=== PATIENT | female | born 1970 | race African-American/Black ===

== ENCOUNTER 2018-08-13 11:00 | Emergency (ER) | payer BC, OTHER ==
[~2018-08-13] VITALS: Ht 167.6 cm; Wt 74.8 kg
[2018-08-13] MEDS ORDERED: methylPREDNISolone SOD SUCC PF 125 MG/2 ML VIAL. IV ONE (11:15)
[2018-08-13] MEDS ORDERED: IV NORMAL SALINE 1000ML BAG 1,000 ML IV ONE (11:15)
--- NOTE | 2018-08-13 11:18 | PHYS DOC ---
Past Medical History Past Medical History: No Pertinent History Past Surgical History: Appendectomy, Other Additional Past Surgical Histo: FIBROIDS Alcohol Use: None Drug Use: None Adult General Chief Complaint Chief Complaint: HEADACHE HPI HPI Patient is a 48 year old female with no significant medical history who presents today to be evaluated for syncope and headache. Patient states yesterday she was working at [id number], she states she found herself on the floor. Patient states an ambulance was called, she declined to be brought to the emergency room to be evaluated. Patient states this morning she woke up with a 4 out of 10 frontal headache. Patient denies anything exacerbating or making the headache better. Denies any photophobia nausea or vomiting with the headache. Denies taking anything for her symptoms. Denies any chest pain or shortness of breath. Review of Systems Review of Systems Constitutional: Denies fever or chills [] Eyes: Denies change in visual acuity, redness, or eye pain [] HENT: Denies nasal congestion or sore throat [] Respiratory: Denies cough or shortness of breath [] Cardiovascular: No additional information not addressed in HPI [] GI: Denies abdominal pain, nausea, vomiting, bloody stools or diarrhea [] : Denies dysuria or hematuria [] Musculoskeletal: Denies back pain or joint pain [] Integument: Denies rash or skin lesions [] Neurologic: Reports headache, syncope, denies focal weakness or sensory changes [] All other systems were reviewed and found to be within normal limits, except as documented in this note. Current Medications Current Medications Current Medications Medications (Trade) Dose Ordered Sig/[facility] Start Time Stop Time Status Last Admin Dose Admin Methylprednisolone Sodium Succinate (SOLU-Medrol 125MG VIAL) 125 mg 1X ONCE 08/13/18 11:15 08/13/18 11:17 DC 08/13/18 11:57 125 MG Sodium Chloride 1,000 ml @ 1,000 mls/hr 1X ONCE 08/13/18 11:15 08/13/18 12:14 DC 08/13/18 11:53 1,000 MLS/HR Allergies Allergies Allergies Coded Allergies Type Severity Reaction Last Updated Verified quinine Allergy Intermediate 03/22/15 No Physical Exam Physical Exam Constitutional: Well developed, well nourished, no acute distress, non-toxic appearance. [] HENT: Normocephalic, atraumatic, bilateral external ears normal, oropharynx moist, no oral exudates, nose normal. [] Eyes: PERRLA, EOMI, conjunctiva normal, no discharge. [] Neck: Normal range of motion, no tenderness, supple, no stridor. [] Cardiovascular:Heart rate regular rhythm, no murmur [] Lungs & Thorax: Bilateral breath sounds clear to auscultation [] Abdomen: Bowel sounds normal, soft, no tenderness, no masses, no pulsatile masses. [] Skin: Warm, dry, no erythema, no rash. [] Back: No tenderness, no CVA tenderness. [] Extremities: No tenderness, no cyanosis, no clubbing, ROM intact, no edema. [] Neurologic: Alert and oriented X 3, normal motor function, normal sensory function, no focal deficits noted. Cranial nerves II through XII intact Psychologic: Affect normal, judgement normal, mood normal. [] Current Patient Data Vital Signs Vital Signs Date Time Temp Pulse Resp B/P (MAP) Pulse Ox O2 Delivery O2 Flow Rate FiO2 08/13/18 14:00 74 18 99 08/13/18 11:06 98.9 109/67 (81) Room Air 98.9 Lab Values Laboratory Tests Test 08/13/18 11:10 08/13/18 11:15 08/13/18 11:25 08/13/18 12:15 Urine Collection Type Unknown Urine Color Yellow Urine Clarity Clear Urine pH 6.0 Urine Specific [place] 1.025 Urine Protein Negative mg/dL (NEG-TRACE) Urine Glucose (UA) Negative mg/dL (NEG) Urine Ketones (Stick) Negative mg/dL (NEG) Urine Blood Moderate (NEG) Urine Nitrite Negative (NEG) Urine Bilirubin Negative (NEG) Urine Urobilinogen Dipstick 0.2 mg/dL (0.2 mg/dL) Urine Leukocyte Esterase Negative (NEG) Urine RBC 6-10 /HPF (0-2) Urine WBC Occ /HPF (0-4) Urine Squamous Epithelial Cells Mod /LPF Urine Bacteria 0 /HPF (0-FEW) Urine Mucus Mod /LPF Urine Opiates Screen Neg (NEG) Urine Methadone Screen Neg (NEG) Urine Barbiturates Neg (NEG) Urine Phencyclidine Screen Neg (NEG) Urine Amphetamine/Methamphetamine Neg (NEG) Urine Benzodiazepines Screen Neg (NEG) Urine Cocaine Screen Neg (NEG) Urine Cannabinoids Screen Neg (NEG) Urine Ethyl Alcohol Neg (NEG) POC Urine HCG, Qualitative Hcg negative (Negative) White Blood Count 3.1 x10^3/uL (4.0-11.0) L Red Blood Count 4.10 x10^6/uL (3.50-5.40) Hemoglobin 11.6 g/dL (12.0-15.5) L Hematocrit 34.5 % (36.0-47.0) L Mean Corpuscular Volume 84 fL (79-100) Mean Corpuscular Hemoglobin 28 pg (25-35) Mean Corpuscular Hemoglobin Concent 34 g/dL (31-37) Red Cell Distribution Width 15.2 % (11.5-14.5) H Platelet Count 227 x10^3/uL (140-400) Neutrophils (%) (Auto) 47 % (31-73) Lymphocytes (%) (Auto) 42 % (24-48) Monocytes (%) (Auto) 8 % (0-9) Eosinophils (%) (Auto) 2 % (0-3) Basophils (%) (Auto) 1 % (0-3) Neutrophils # (Auto) 1.5 x10^3uL (1.8-7.7) L Lymphocytes # (Auto) 1.3 x10^3/uL (1.0-4.8) Monocytes # (Auto) 0.3 x10^3/uL (0.0-1.1) Eosinophils # (Auto) 0.1 x10^3/uL (0.0-0.7) Basophils # (Auto) 0.0 x10^3/uL (0.0-0.2) Troponin I Quantitative < 0.017 ng/mL (0.000-0.055) WT-Tgi-V-Type Natriuretic Peptide 10 pg/mL (0-124) Thyroid Stimulating Hormone (TSH) 0.185 uIU/mL (0.358-3.74) L Sodium Level 144 mmol/L (136-145) Potassium Level 3.5 mmol/L (3.5-5.1) Chloride Level 107 mmol/L (98-107) Carbon Dioxide Level 30 mmol/L (21-32) Anion Gap 7 (6-14) Blood Urea Nitrogen 11 mg/dL (7-20) Creatinine 1.0 mg/dL (0.6-1.0) Estimated GFR (Cockcroft-Gault) 72.2 BUN/Creatinine Ratio 11 (6-20) Glucose Level 77 mg/dL (70-99) Calcium Level 8.6 mg/dL (8.5-10.1) Magnesium Level 1.8 mg/dL (1.8-2.4) Total Bilirubin 0.2 mg/dL (0.2-1.0) Aspartate Amino Transferase (AST) 12 U/L (15-37) L Alanine Aminotransferase (ALT) 17 U/L (14-59) Alkaline Phosphatase 49 U/L (46-116) Total Protein 7.4 g/dL (6.4-8.2) Albumin 3.1 g/dL (3.4-5.0) L Albumin/Globulin Ratio 0.7 (1.0-1.7) L Laboratory Tests 08/13/18 11:25 Laboratory Tests 08/13/18 12:15 EKG EKG 11:[address] Ram sinus rhythm heart rate 69 no STEMI Radiology/Procedures Radiology/Procedures []PROCEDURE: PORTABLE CHEST 1V EXAM: Chest, single view. HISTORY: Syncope. COMPARISON: None. FINDINGS: A frontal view of the chest is obtained. There is no infiltrate, pleural effusion or pneumothorax. The heart is normal in size. IMPRESSION: No acute pulmonary finding. Electronically signed by: Chante Vines MD (08/13/2018 11:44 AM) [facility] DICTATED and SIGNED BY: CHANTE VINES MD DATE: 08/13/18 1144 PROCEDURE: CT HEAD WO CONTRAST EXAM: Head CT without contrast. HISTORY: Syncope. Fall.. TECHNIQUE: Computed tomographic images of the head were obtained without contrast. *One or more of the following individualized dose reduction techniques were utilized for this examination: 1. Automated exposure control. 2. Adjustment of the mA and/or kV according to patient size. 3. Use of iterative reconstruction technique. COMPARISON: None. FINDINGS: There is no acute or subacute extra-axial or intraparenchymal hemorrhage. There is no mass effect or midline shift. There is no hydrocephalus. The yeh-white matter differential pattern is intact. The visualized portions of the orbits, paranasal sinuses and mastoid air cells are unremarkable. No suspicious calvarial lesion is seen. IMPRESSION: No acute intracranial findings. Electronically signed by: Chante Vines MD (08/13/2018 11:57 AM) [facility] DICTATED and SIGNED BY: CHANTE VINES MD DATE: 08/13/18 1152 Course & Med Decision Making Course & Med Decision Making Pertinent Labs and Imaging studies reviewed. (See chart for details) This is a 48-year-old female patient presenting to the ED today with a syncope episode that occurred yesterday at work. Also complaining of a headache that began this morning. Patient's EKG, labs including cardiac workup, chest x-ray, CT, were negative for any acute findings. Patient is in no distress. She was given IV fluids and Decadron. She is feeling better. She is an appointment with her PCP tomorrow. She is provided return precautions and discharged in stable condition. Dragon Disclaimer Dragon Disclaimer This electronic medical record was generated, in whole or in part, using a voice recognition dictation system. Departure Departure Impression: Primary Impression: Syncope Additional Impression: Headache Disposition: 01 HOME, SELF-CARE Condition: STABLE Referrals: MT STANLEY MD (PCP) Follow-up with your doctor as soon as you can Patient Instructions: General Headache Without Cause, [id number], Syncope Additional Instructions: You were evaluated in the emergency room for syncope and headache. Take Tylenol or Motrin as needed for pain. Follow-up with your doctor as soon as you can. Come back to the emergency room at any point symptoms worsen. Problem Qualifiers Primary Impression: Syncope Syncope type: unspecified Qualified Codes: R55 - Syncope and collapse Additional Impression: Headache Headache type: unspecified Headache chronicity pattern: acute headache Intractability: not intractable Qualified Codes: R51 - Headache SUZAN HERNANDEZ CONTACT OFFICER Aug 13, 2018 11:18
[2018-08-13 11:26] LABS: BILIRUBIN,URINE NEGATIVE (NEG); CLARITY,URINE CLEAR; COLOR,URINE YELLOW; NITRITE,URINE NEGATIVE (NEG); PROTEIN,URINE NEGATIVE (NEG-TRACE); UROBILINOGEN,URINE 0.2 mg/dL (0.2 mg/dL)
[2018-08-13 11:31] LABS: BARBITURATES NEG (NEG); BENZODIAZEPINES NEG (NEG); CANNABINOIDS NEG (NEG); COCAINE NEG (NEG); METHADONE NEG (NEG); OPIATES NEG (NEG); PHENCYCLIDINE NEG (NEG)
[2018-08-13 11:37] LABS: AMPHETAMINE/METHAMPHETAMINE NEG (NEG)
[2018-08-13 11:39] LABS: SQUAMOUS EPITHELIAL CELL,UR MOD /LPF
[2018-08-13 11:40] LABS: BASO % 1 % (0-3); EOS # 0.1 x10^3/uL (0.0-0.7); EOS % 2 % (0-3); HEMATOCRIT 34.5 % (36.0-47.0); HEMOGLOBIN 11.6 g/dL (12.0-15.5); LYMPH # 1.3 x10^3/uL (1.0-4.8); LYMPH % 42 % (24-48); MEAN CORPUSCULAR HEMOGLOBIN 28 pg (25-35); MEAN CORPUSCULAR HGB CONC 34 g/dL (31-37); MEAN CORPUSCULAR VOLUME 84 fL (79-100); MONO # 0.3 x10^3/uL (0.0-1.1); MONO % 8 % (0-9); NEUT # 1.5 x10^3uL (1.8-7.7); NEUT % 47 % (31-73); PLATELET COUNT 227 x10^3/uL (140-400); RED CELL DISTRIBUTION WIDTH 15.2 % (11.5-14.5); WHITE BLOOD COUNT 3.1 x10^3/uL (4.0-11.0)
[2018-08-13 11:40] LABS: BACTERIA,URINE 0 /HPF (0-FEW); WBC,URINE OCC /HPF (0-4)
--- NOTE | 2018-08-13 11:47 | RAD ---
EXAM: Chest, single view. HISTORY: Syncope. COMPARISON: None. FINDINGS: A frontal view of the chest is obtained. There is no infiltrate, pleural effusion or pneumothorax. The heart is normal in size. IMPRESSION: No acute pulmonary finding. Electronically signed by: Chante Ricci MD (08/13/2018 11:44 AM) [place] [id number]
--- NOTE | 2018-08-13 12:00 | RAD ---
EXAM: Head CT without contrast. HISTORY: Syncope. Fall.. TECHNIQUE: Computed tomographic images of the head were obtained without contrast. *One or more of the following individualized dose reduction techniques were utilized for this examination: 1. Automated exposure control. 2. Adjustment of the mA and/or kV according to patient size. 3. Use of iterative reconstruction technique. COMPARISON: None. FINDINGS: There is no acute or subacute extra-axial or intraparenchymal hemorrhage. There is no mass effect or midline shift. There is no hydrocephalus. The yeh-white matter differential pattern is intact. The visualized portions of the orbits, paranasal sinuses and mastoid air cells are unremarkable. No suspicious calvarial lesion is seen. IMPRESSION: No acute intracranial findings. Electronically signed by: Chante Ricci MD (08/13/2018 11:57 AM) [place] [id number]
[2018-08-13 13:44] LABS: ALBUMIN 3.1 g/dL (3.4-5.0); ALBUMIN/GLOBULIN RATIO 0.7 (1.0-1.7); CALCIUM 8.6 mg/dL (8.5-10.1); GFR 72.2; MAGNESIUM 1.8 mg/dL (1.8-2.4); POTASSIUM 3.5 mmol/L (3.5-5.1); TOTAL BILIRUBIN 0.2 mg/dL (0.2-1.0); TOTAL PROTEIN 7.4 g/dL (6.4-8.2)
[2018-08-13 14:00] VITALS: BP 117/74
--- NOTE | 2018-08-13 15:27 | EKG ---
[facility] [address] [place] [address] Test Date: 2018-08-13 Test Time: 11:23:37 Pat Name: FAIZA WRIGHT Department: Room: Gender: F Fleet Manager/Dispatch: : 1970 Requested By: SUZAN HERNANDEZ Order Number: [id number] Reading MD: Zain Abreu MD Measurements Intervals [place] Rate: 69 P: 49 AK: 160 QRS: 33 QRSD: 78 T: 47 QT: 368 QTc: 396 Interpretive Statements SINUS RHYTHM Electronically Signed On 08-15-2018 13:41:36 CDT by Zain Abreu MD
== END 2018-08-13 14:43 | disposition home or self-care (01) ==
LOC: ER 11:00
DX: R55 Syncope and collapse (principal); R51 Headache; Z90.89 Acquired absence of other organs; Z88.8 Allergy status to other drugs, medicaments and biological substances
CPT/HCPCS: 36415; 70450; 71045; 80053; 80307; 81001; 81025; 83735; 83880; 84443; 84484; 85025; 93005; 96361; 96374; 99285; J2930; J7030; G0479

== ENCOUNTER 2018-10-09 16:42 | Emergency (ER) | payer BC ==
[~2018-10-09] VITALS: Ht 167.6 cm; Wt 72.6 kg
[2018-10-09] MEDS ORDERED: NITROGLYCERIN SUBLINGUAL 0.4 MG BOTTLE OF 25. SL PRN (17:00)
[2018-10-09] MEDS ORDERED: ASPIRIN CHEWABLE 81 MG TABLET. PO ONE (17:00)
--- NOTE | 2018-10-09 17:29 | RAD ---
CHEST PA LATERAL History: ER PATIENT. ATRAUMATIC CHEST PAIN TODAY. Comparison: AP chest, August 13, 2018. Findings: The cardiomediastinal silhouette is normal. Pulmonary vasculature is normal. The lungs are clear. No pleural effusion or pneumothorax is seen. There is no acute bone abnormality. There is mild right convexity thoracic scoliosis. IMPRESSION: No acute cardiopulmonary process. Electronically signed by: Hao Ernandez MD (10/09/2018 5:25 PM) [facility]
[2018-10-09] MEDS ORDERED: fentaNYL PF VIAL 100 MCG/2 ML VIAL IV ONE (17:30)
[2018-10-09 17:54] LABS: CALCIUM 10.1 mg/dL (8.5-10.1); GFR 72.2; POTASSIUM 3.6 mmol/L (3.5-5.1)
[2018-10-09 18:00] LABS: ALBUMIN 3.7 g/dL (3.4-5.0); ALBUMIN/GLOBULIN RATIO 0.8 (1.0-1.7); TOTAL BILIRUBIN 0.2 mg/dL (0.2-1.0); TOTAL PROTEIN 8.6 g/dL (6.4-8.2)
--- NOTE | 2018-10-09 18:01 | EKG ---
[facility] [address] [place] [address] Test Date: 2018-10-09 Test Time: 16:48:01 Pat Name: FAIZA WRIGHT Department: Room: Gender: F Traveling Sales Executive: : 1970 Requested By: AMANDEEP CONTRERAS Order Number: [id number] Reading MD: Measurements Intervals [place] Rate: 66 P: 47 [place]: 150 QRS: 34 QRSD: 76 T: 55 QT: 376 QTc: 396 Interpretive Statements SINUS RHYTHM QRS(T) CONTOUR ABNORMALITY CONSIDER ANTEROSEPTAL MYOCARDIAL DAMAGE POSSIBLY ABNORMAL ECG RI6.01 No previous ECG available for comparison
--- NOTE | 2018-10-09 18:10 | PHYS DOC ---
Past Medical History Past Medical History: No Pertinent History Past Surgical History: Appendectomy, Other Additional Past Surgical Histo: FIBROIDS Alcohol Use: None Drug Use: None Adult General Chief Complaint Chief Complaint: CHEST PAIN HPI HPI Patient is a 48 year old female who presents with patient states that her chest pain began 30 minutes prior to arrival to the ED. She is a pain a 5 out of 10 and states it submitted chest and sharp but doesn't radiate. She denies any vomiting, nausea, diarrhea, fever, numbness or tingling, headache, shortness of air. Patient states she has no past medical history and takes no medications and has not had no surgeries. Review of Systems Review of Systems Constitutional: Denies fever or chills [] Eyes: Denies change in visual acuity, redness, or eye pain [] HENT: Denies nasal congestion or sore throat [] Respiratory: Denies cough or shortness of breath [] Cardiovascular: Mid chest pain GI: Denies abdominal pain, nausea, vomiting, bloody stools or diarrhea [] : Denies dysuria or hematuria [] Musculoskeletal: Denies back pain or joint pain [] Integument: Denies rash or skin lesions [] Neurologic: Denies headache, focal weakness or sensory changes [] Endocrine: Denies polyuria or polydipsia [] All other systems were reviewed and found to be within normal limits, except as documented in this note. Current Medications Current Medications Current Medications Medications (Trade) Dose Ordered Sig/[facility] Start Time Stop Time Status Last Admin Dose Admin Aspirin (Children'S Aspirin) 324 mg 1X ONCE 10/09/18 17:00 10/09/18 17:01 DC 10/09/18 17:14 324 MG Fentanyl Citrate (Fentanyl 2ml Vial) 50 mcg 1X ONCE 10/09/18 17:30 10/09/18 17:31 DC 10/09/18 17:26 50 MCG Nitroglycerin (Nitrostat) 0.4 mg PRN Q5MIN PRN 10/09/18 17:00 10/09/18 17:15 0.4 MG Allergies Allergies Allergies Coded Allergies Type Severity Reaction Last Updated Verified quinine Allergy Intermediate 03/22/15 No Physical Exam Physical Exam Constitutional: Well developed, well nourished, no acute distress, non-toxic appearance. [] HENT: Normocephalic, atraumatic, bilateral external ears normal, oropharynx moist, no oral exudates, nose normal. [] Eyes: PERRLA, EOMI, conjunctiva normal, no discharge. [] Neck: Normal range of motion, no tenderness, supple, no stridor. [] Cardiovascular:Heart rate regular rhythm, no murmur [] Lungs & Thorax: Bilateral breath sounds clear to auscultation [] Abdomen: Bowel sounds normal, soft, no tenderness, no masses, no pulsatile masses. [] Skin: Warm, dry, no erythema, no rash. [] Back: No tenderness, no CVA tenderness. [] Extremities: No tenderness, no cyanosis, no clubbing, ROM intact, no edema. [] Neurologic: Alert and oriented X 3, normal motor function, normal sensory function, no focal deficits noted. [] Psychologic: Affect normal, judgement normal, mood normal. [] Current Patient Data Vital Signs Vital Signs Date Time Temp Pulse Resp B/P (MAP) Pulse Ox O2 Delivery O2 Flow Rate FiO2 10/09/18 18:44 73 18 111/63 (79) 100 Room Air 10/09/18 16:42 97.6 97.6 Lab Values Laboratory Tests Test 10/09/18 17:30 10/09/18 19:08 White Blood Count 3.7 x10^3/uL (4.0-11.0) L Red Blood Count 4.46 x10^6/uL (3.50-5.40) Hemoglobin 12.2 g/dL (12.0-15.5) Hematocrit 37.9 % (36.0-47.0) Mean Corpuscular Volume 85 fL (79-100) Mean Corpuscular Hemoglobin 27 pg (25-35) Mean Corpuscular Hemoglobin Concent 32 g/dL (31-37) Red Cell Distribution Width 15.4 % (11.5-14.5) H Platelet Count 268 x10^3/uL (140-400) Neutrophils (%) (Auto) 45 % (31-73) Lymphocytes (%) (Auto) 40 % (24-48) Monocytes (%) (Auto) 12 % (0-9) H Eosinophils (%) (Auto) 3 % (0-3) Basophils (%) (Auto) 0 % (0-3) Neutrophils # (Auto) 1.7 x10^3uL (1.8-7.7) L Lymphocytes # (Auto) 1.5 x10^3/uL (1.0-4.8) Monocytes # (Auto) 0.4 x10^3/uL (0.0-1.1) Eosinophils # (Auto) 0.1 x10^3/uL (0.0-0.7) Basophils # (Auto) 0.0 x10^3/uL (0.0-0.2) Sodium Level 143 mmol/L (136-145) Potassium Level 3.6 mmol/L (3.5-5.1) Chloride Level 104 mmol/L (98-107) Carbon Dioxide Level 31 mmol/L (21-32) Anion Gap 8 (6-14) Blood Urea Nitrogen 11 mg/dL (7-20) Creatinine 1.0 mg/dL (0.6-1.0) Estimated GFR (Cockcroft-Gault) 72.2 BUN/Creatinine Ratio 11 (6-20) Glucose Level 77 mg/dL (70-99) Calcium Level 10.1 mg/dL (8.5-10.1) Total Bilirubin 0.2 mg/dL (0.2-1.0) Aspartate Amino Transferase (AST) 13 U/L (15-37) L Alanine Aminotransferase (ALT) 18 U/L (14-59) Alkaline Phosphatase 57 U/L (46-116) Troponin I Quantitative < 0.017 ng/mL (0.000-0.055) < 0.017 ng/mL (0.000-0.055) Total Protein 8.6 g/dL (6.4-8.2) H Albumin 3.7 g/dL (3.4-5.0) Albumin/Globulin Ratio 0.8 (1.0-1.7) L Laboratory Tests 10/09/18 17:30 Laboratory Tests 10/09/18 17:30 EKG EKG Sinus rhythm and no STEMI[] Interpretation Time: [address] Tucker Radiology/Procedures Radiology/Procedures [] Impressions: [facility] [address] [place], [place] [id number] IMAGING REPORT Signed PATIENT: FAIZA WRIGHT ACCOUNT: [id number] : 1970 LOCATION: ER AGE: 48 SEX: F EXAM STATUS: REG ER ORD. PHYSICIAN: AMANDEEP CONTRERAS APRN REASON: chest pain PROCEDURE: CHEST PA & LATERAL CHEST PA LATERAL History: ER PATIENT. ATRAUMATIC CHEST PAIN TODAY. Comparison: [facility] chest, August 13, 2018. Findings: The cardiomediastinal silhouette is normal. Pulmonary vasculature is normal. The lungs are clear. No pleural effusion or pneumothorax is seen. There is no acute bone abnormality. There is mild right convexity thoracic scoliosis. IMPRESSION: No acute cardiopulmonary process. Electronically signed by: Hao Eranndez MD (10/09/2018 5:25 PM) [facility] DICTATED and SIGNED BY: HAO ERNANDEZ MD DATE: 10/09/181722 Course & Med Decision Making Course & Med Decision Making Patient is a 48 year old female who presents with patient states that her chest pain began 30 minutes prior to arrival to the ED. She is a pain a 5 out of 10 and states mid chest and sharp but doesn't radiate. She denies any vomiting, nausea, diarrhea, fever, numbness or tingling, headache, shortness of air. Patient states she has no past medical history and takes no medications and has not had no surgeries. Alert and oriented. Skin is pink warm and dry. Patient has no peripheral edema. PERRLA. Neurologically intact. Abdomen soft and nontender. Patient is stable and in no respiratory distress. She speaks in full clear sentences. She has no focal weaknesses. She has not taken any medications for the chest pain. Have given her aspirin in the ED and nitroglycerin. I also given her some fentanyl because the nitroglycerin causes a headache. After 2 nitro's patient's chest pain was down to a 1 and stated she was feeling much better. Troponin negative. EKG shows sinus rhythm and no STEMI. Heart score is a 1. Patient has a failure at the bedside and she is talking and different language and called the nurse and and stated that she's having mid chest pain again. The nurse will give her 1 last dose of nitroglycerin take a total of 3. After 1 dose of nitroglycerin patient's pain is gone. Patient states she is feeling fine and ready to go. She'll be discharged home to consult to cardiology. I have consulted with Dr Main on this patient. Sonja Disclaimer Sonja Disclaimer This electronic medical record was generated, in whole or in part, using a voice recognition dictation system. Departure Departure Impression: Primary Impression: Chest pain Disposition: HOME, SELF-CARE Condition: STABLE Referrals: MT STANLEY MD (PCP) Patient Instructions: Chest Pain (Nonspecific) Additional Instructions: Call your doctor on Friday. Return to ED is the chest pain reoccurs and does not go away, you become short of air, begin vomiting. Problem Qualifiers Primary Impression: Chest pain Chest pain type: unspecified Qualified Codes: R07.9 - Chest pain, unspecified AMANDEEP CONTRERAS GROUND SUPPORT EQUIPMENT MECHANIC Oct 09, 2018 18:10
[2018-10-09 18:44] LABS: BASO % 0 % (0-3); EOS # 0.1 x10^3/uL (0.0-0.7); EOS % 3 % (0-3); HEMATOCRIT 37.9 % (36.0-47.0); HEMOGLOBIN 12.2 g/dL (12.0-15.5); LYMPH # 1.5 x10^3/uL (1.0-4.8); LYMPH % 40 % (24-48); MEAN CORPUSCULAR HEMOGLOBIN 27 pg (25-35); MEAN CORPUSCULAR HGB CONC 32 g/dL (31-37); MEAN CORPUSCULAR VOLUME 85 fL (79-100); MONO # 0.4 x10^3/uL (0.0-1.1); MONO % 12 % (0-9); NEUT # 1.7 x10^3uL (1.8-7.7); NEUT % 45 % (31-73); PLATELET COUNT 268 x10^3/uL (140-400); RED BLOOD COUNT 4.46 x10^6/uL (3.50-5.40); RED CELL DISTRIBUTION WIDTH 15.4 % (11.5-14.5); WHITE BLOOD COUNT 3.7 x10^3/uL (4.0-11.0)
[2018-10-09 20:40] VITALS: BP 95/58
== END 2018-10-09 20:50 | disposition home or self-care (01) ==
LOC: ER 16:42
DX: R07.89 Other chest pain (principal); Z90.89 Acquired absence of other organs; Z88.8 Allergy status to other drugs, medicaments and biological substances
CPT/HCPCS: 36415; 71046; 80053; 84484; 85025; 93005; 99284; J3010